=== PATIENT | male | born 1965 | race Caucasian/White ===

== ENCOUNTER 2020-04-21 14:31 | Emergency (ER) | payer SELFPAY ==
[2020-04-21 14:32] VITALS: BP 116/80; PULSE 83; RESP 16; TEMP 36.7; O2SAT 96; BMI 25.0
--- NOTE | 2020-04-21 14:51 | W.ED.ABDPA2 ---
HPI - Abdominal Pain General: Chief Complaint: Abdominal Pain Stated Complaint: NUMBNESS TO FACE AND R ARM, ABD PAIN Time Seen by Provider: 04/21/20 14:33 Source: patient and EMS Mode of arrival: EMS Limitations: no limitations History of Present Illness: HPI narrative: 54-year-old male who is here by EMS from [facility]. He states been having facial numbness along with abdominal pain for days. Difficult to get history from patient as he is very verbally abusive. He has cursed me out and the staff out. Patient is refusing IV and refusing any imaging. Patient states he wants to talk to a community action worker and will not do anything until he speaks to a community action worker. He is able answer my questions appropriately. He is ANO x3. Associated Symptoms: Denies chills, dysuria and fever(s) Review of Systems Const: Denies: fever(s), chills, body aches or change in appetite Eyes: Denies: blurry vision or eye discomfort ENMT: Denies: throat pain or dental pain Card: Denies: chest pain Resp: Denies: dyspnea GI: Reports: abdominal pain : Denies: dysuria Musc: Denies: neck pain or back pain Skin/Breast: Denies: rash Neuro: Denies: headache(s) Psych: Denies: depression Yanick/Lymph: Denies: easy bruising All/Imm: Denies: urticaria Physical Exam Const: COMMON NORMALS: no acute distress, patient oriented x3 and healthy appearing OTHER: very agitated and rude to staff and cussed me and nurses out HENMT: COMMON NORMALS: normocephalic and atraumatic HEAD & SCALP: normocephalic and atraumatic Eye: COMMON NORMALS: Equal, round and reactive pupils present and EOMs intact bilaterally PUPIL: Yes Equal, round and reactive pupils present Neck/C-Spine: COMMON NORMALS: full ROM and supple Chest: COMMONS NORMALS: normal inspection of the chest and normal palpation of entire chest wall Resp: COMMON NORMALS: normal respiratory effort, No retractions, No use of accessory muscles and clear to auscultation bilaterally AUSCULTATION: clear to auscultation bilaterally Cardio: COMMON NORMALS: regular rate, regular rhythm and No murmurs present (Cardio) RATE: regular rate RHYTHM: regular rhythm GI: COMMON NORMALS: Normal to inspection, nondistended, normoactive bowel sounds present, Soft to palpation and no masses PALPATION: Yes Soft to palpation OTHER: diffuse tenderness Extremity: COMMON NORMALS: normal to inspection and full ROM Neuro: COMMON NORMALS: patient oriented x3, moves all extremities and no focal motor deficits Psych: COMMON NORMALS: mental status grossly normal MOOD & AFFECT: Yes irritable Skin: COMMON NORMALS: no rashes or lesions noted and no wounds GENERAL SKIN EXAM: no rashes or lesions noted Course Vital Signs: Vital signs: Vital Signs Temperature 98.0 F 04/21/20 14:32 Pulse Rate 83 04/21/20 14:32 Respiratory Rate 16 04/21/20 14:32 Blood Pressure 116/80 04/21/20 14:32 Pulse Oximetry 96 04/21/20 14:32 MDM - Abdominal Pain MDM Narrative: Medical decision making narrative: Nimesh presents here with abdominal pain. Patient has been agitated and verbally abusive. When patient originally got here he refused IV and CT. He then changed his mind and said he would but then only tried to he started yelling at staff again and refused. Patient does have decision-making past he was able answer my questions appropriately. He knows the date and the president where he is from. Patient understands the risks and he is signing out AMA and is going back to [facility]. He is to return if he changes his mind. He understands agrees to plan. Discharge Plan Discharge Patient Disposition: Left Against Medical Advice Coding Level of Care Code ED Rotary Drier Feeder for Keerthi Carcamo Exam Comprehensive
--- NOTE | 2020-04-21 14:52 | PC.NURSE ---
pt continues to scream at staff and the outer diameter grinder tool. Dr. Leroy went into the room and the pt states that he wants to leave. he is refusing to let us start a IV.
--- NOTE | 2020-04-21 15:50 | PC.NURSE ---
Pt refuses care from this nurse or other staff. Patient states I don't want anybody to touch me, just take me back to retirement. Pt frequently has been yelling curse words and yelling Someone help me but when asked what he needs he states he hurts but continues to tell staff I don't want you to touch me, I want to leave Pt is offered an AMA form to sign and refuses stating I'm not signing anything without my director of music therapy, just take me back to retirement
--- NOTE | 2020-04-21 16:40 | PC.NURSE ---
Pt states he needs to go to the bathroom, pt is offered a urinal or he can walk to the restroom, pt refuses either stating I can't go, I've tried in retirement and couldn't go After discussing options with patient again he chooses to walk to the restroom but when returning to room he states he was unable to go and his pain remains.
--- NOTE | 2020-04-21 17:10 | PC.NURSE ---
When further law enforcement staff arrive for patient transport back to their facility pt tells this nurse that he now does want treatment. Pt agrees to have blood drawn but during first attempt he jerks away and yells You have to get this out of me gesturing toward his lower abdomen/groin. Pt of offered again to use the restroom and states I can't go, you've got to get this out of me Pt instructed that I must get the blood draw at this time and he will need to hold still, pt agrees. Second attempt for blood draw is successful.
[2020-04-21 17:11] LABS: Basophils # 0.1 10^3/uL (0.0-0.1); Basophils % 0.5 %; Eosinophils # 0.1 10^3/uL (0.0-0.8); Eosinophils % 0.9 %; Hematocrit 47.8 % (42.0-52.0); Hemoglobin 15.7 g/dL (11.7-16.6); Lymphocytes # 1.8 10^3/uL (0.8-4.8); Lymphocytes % 18.7 %; Mean Corpuscular HGB Conc 32.8 g/dL (30.0-36.0); Mean Corpuscular Hemoglobin 27.9 pg (28.0-34.0); Mean Corpuscular Volume 85.1 fL (80-94); Mean Platelet Volume 9.6 fL (7.4-10.4); Monocytes # 0.8 10^3/uL (0.2-0.9); Monocytes % 8.1 %; Neutrophils # 7.02 10^3/uL (1.8-7.7); Neutrophils % 71.6 %; Nucleated Red Blood Cells % 0 %; Platelet Count 294 10^3/cmm (130-400); Red Blood Count 5.62 10^6/uL (4.1-5.3); White Blood Count 9.8 10^3/uL (4.0-10.0)
--- NOTE | 2020-04-21 17:23 | CTR_ITS ---
PROCEDURE INFORMATION: Exam: CT Abdomen And Pelvis Without Contrast Exam date and time: 04/21/2020 5:33 PM Age: 54 years old Clinical indication: Other: Unable to urinate; Abdominal pain; Prior surgery; Surgery type: Appy. Left hip; Additional info: Abd pain TECHNIQUE: Imaging protocol: Computed tomography of the abdomen and pelvis without contrast. Radiation optimization: All CT scans at this facility use at least one of these dose optimization techniques: automated exposure control; mA and/or kV adjustment per patient size (includes targeted exams where dose is matched to clinical indication); or iterative reconstruction. COMPARISON: No relevant prior studies available. RADIATION DOSE METRICS: Total DLP (mGy-cm): 1116.77 FINDINGS: Lungs: Limited assessment of the lung bases fails to reveal evidence for active cardiopulmonary process. Liver: Unremarkable. No mass. Gallbladder and bile ducts: Normal. No calcified stones. No ductal dilation. Pancreas: Normal. No ductal dilation. Spleen: Normal. No splenomegaly. Adrenal glands: Normal. No mass. Kidneys and ureters: No visible hydronephrosis, hydroureter, ureterolithiasis, nephrolithiasis, or nephrocalcinosis. Stomach and bowel: Assessment of the hollow viscus fails to reveal evidence of active or acute pathology. Nonobstructed bowel pattern. No visible acute diverticulitis. No visible adynamic or reactive ileus. Appendix: Status post appendectomy. Intraperitoneal space: No visible evidence of mesenteric lymphadenitis or active mesenteritis/panniculitis. No visible pneumoperitoneum. No visible intraperitoneal ascites. Vasculature: The abdominal aorta is nonaneurysmal. Mild arterial sclerotic disease. Lymph nodes: No current visible evidence of active mesenteric or retroperitoneal lymphadenopathy. Urinary bladder: Distended urinary bladder. No visible bladder stone. Bladder measures 16.9 cm x 10.9 cm x 10.9 cm. No bladder wall thickening. No asymmetrical bladder wall thickening. No visible mass. Reproductive: Mild prostate hypertrophy. Prostate measures approximately 5.5 cm x 3.6 cm. Bones/joints: Compression screw and intramedullary jayy fixation left hip with metal artifact. No visible active or acute osseous abnormality. Soft tissues: Unremarkable. Other findings: Suboptimal patient positioning. Increased quantum mottle artifact. CT/CT abdomen pelvis wo con [id number] IMPRESSION: 1. Distended urinary bladder. 2. Mild prostate hypertrophy. 3. No visible hydronephrosis, hydroureter, ureterolithiasis, nephrolithiasis, or nephrocalcinosis. 4. No visible bladder stone. Radiation Dose CTDIVOL = (mGy): DLP = 1116.77 (mGy-cm)
--- NOTE | 2020-04-21 17:23 | CTR_ITS ---
PROCEDURE INFORMATION: Exam: CT Head Without Contrast Exam date and time: 04/21/2020 5:33 PM Age: 54 years old Clinical indication: Pain; Headache; Patient HX: Best images. PT uncooperative; Additional info: Parasthesias TECHNIQUE: Imaging protocol: Computed tomography of the head without contrast. Radiation optimization: All CT scans at this facility use at least one of these dose optimization techniques: automated exposure control; mA and/or kV adjustment per patient size (includes targeted exams where dose is matched to clinical indication); or iterative reconstruction. COMPARISON: No relevant prior studies available. RADIATION DOSE METRICS: Total DLP (mGy-cm): 641 FINDINGS: Brain: No evidence of active or acute intracranial pathologic process, hemorrhage, or trauma. No visible evidence of diffuse cerebral edema or generalized demyelination. Unremarkable white matter. No mass effect. Cerebral ventricles: No ventriculomegaly. Bones/joints: Unremarkable. No acute fracture. Paranasal sinuses: Visualized sinuses are unremarkable. No fluid levels. Mastoid air cells: Visualized mastoid air cells are well aerated. Soft tissues: Unremarkable. Other findings: Motion artifact. CT/CT head wo con* [id number] IMPRESSION: No acute intracranial abnormality. Radiation Dose CTDIVOL = (mGy): DLP = 641 (mGy-cm)
[2020-04-21 17:46] LABS: Alanine Aminotransferase 16 U/L (0-41); Albumin Level 3.9 g/dL (3.5-5.2); Alkaline Phosphatase 90 IU/L (40-130); Anion Gap 14.9 (5-19); Aspartate Amino Transferase 14 U/L (0-40); Blood Urea Nitrogen 16 mg/dL (6-20); Calcium 9.5 mg/dL (8.5-10.5); Carbon Dioxide 23 mmol/L (22-29); Chloride 103 mmol/L (98-107); Glomerular Filtration Rate 69.2 mL/min (90-130); Glucose 108 mg/dL (65-115); Lipase 21 U/L (13-60); Osmolality Calculated 286 mOsm/kg (285-295); Potassium 3.9 mmol/L (3.5-5.1); Sodium 137 mmol/L (136-145); Total Bilirubin 0.6 mg/dL (0.15-1.2); Total Protein 6.9 g/dL (6.6-8.7)
--- NOTE | 2020-04-21 19:04 | PC.NURSE ---
Pt discharged into the custody of law enforcement at this time, pt refused urinary catheter and states I will just deal with the pain
[2020-04-21 19:21] VITALS: BP 103/85; PULSE 88; RESP 18; O2SAT 97
--- NOTE | 2020-04-22 09:46 | DCPLANNER ---
child nutrition manager had message to schedule a follow up appointment for patient with Dr. Stovall. child nutrition manager called the office of Dr. Stovall, spoke with Any, gave clinic patients information. child nutrition manager was told that patients information would be printed and reviewed. Clinic will call patient with appointment information.
--- NOTE | 2020-04-23 13:47 | DCPLANNER ---
Rocio from Dr. Carrion office called case manger stating that when the phone number in chart was called, it was not patients phone number. [facility] manager rn case called the longterm and asked if the longterm would bring patient to the appointment. manager sales training was told that the officer would have to speak with the linux vmware administrator to see if they would take him to the appointment. manager sales training called the office of Dr. Stovall, spoke with Any and told her that patient was in longterm and that the [facility] longterm would call the clinic and tell clinic if they will transport patient to appointment.
--- NOTE | 2020-06-16 08:10 | DCPLANNER ---
Patient had a follow up appointment scheduled for 05.01.[address] Stovall - patient did not attend appointment.
== END 2020-04-21 19:03 | disposition home or self-care (01) ==
PROVIDERS: Emergency Provider Emergency Medicine
DX: R10.9 Unspecified abdominal pain (principal); R20.0 Anesthesia of skin; Z53.21 Procedure and treatment not carried out due to patient leaving prior to being seen by health care provider
CPT/HCPCS: 12345; 70450; 74176; 80053; 83690; 85025; 99281; 99283

== ENCOUNTER 2021-06-10 14:29 | Emergency (ER) | payer SELFPAY ==
[2021-06-10 14:57] VITALS: BP 107/76; PULSE 79; RESP 16; TEMP 36.6; O2SAT 97
--- NOTE | 2021-06-10 15:33 | ED_ITS ---
HPI - Back Pain/Injury General: Chief Complaint: Back Pain/Injury Stated Complaint: BACK PAINS Time Seen by Provider: 06/10/21 15:14 History of Present Illness: 55-year-old male presents emergency room complaining of low back pain radiating to bilateral into the upper portions of his legs. He has not had any loss of bowel control has not had any urinary retention. Generalized ache and pain in his back radiating to his legs he also reports other vague aches including his arms and his face he is not had any sinus congestion he has a baseline chronic smoker's cough that is unchanged he is not had any fever. No dysuria urgency or frequency. MD elicited complaint: back pain Pertinent past history: prior back pain Onset (ago): day(s) Timing: constant Severity: moderate Similar Symptoms Previously: Yes Quality: sharp Location: lumbar spine Radiation: left upper leg and right upper leg Exacerbating factors: movement and walking Relieving factors: supine Associated symptoms: Deny abdominal pain, arthralgias, chills, change in bowel habits, difficulty walking, dysuria, fatigue, fecal incontinence, fever(s), hematuria, myalgias, nausea, numbness, syncope, tingling/numbness/burning, urinary frequency, urinary urgency, vomiting, weakness or other Work related injury: No Review of Systems Const: Denies: fever(s), chills or fatigue ENMT: Denies: throat pain, ear or mastoid pain, nasal discharge or nasal congestion Card: Denies: syncope Resp: Denies: dyspnea, productive cough or non-productive cough GI: Denies: abdominal pain, nausea, vomiting, fecal incontinence or change in bowel habits : Denies: dysuria, urinary urgency or hematuria Skin/Breast: Denies: rash or pruritus Neuro: Denies: difficulty walking PFS ED PFSH: Medical History (Updated 06/10/21 @ 15:37 by Yoav Fields DO) Chronic lumbar pain Surgical History (Updated 06/10/21 @ 15:38 by Yoav Fields DO) Previous back surgery S/P total left hip arthroplasty Social History (Updated 06/10/21 @ 15:38 by Yoav Fields DO) Smoking and tobacco status: current every day smoker Physical Exam Const: COMMON NORMALS: no acute distress GENERAL APPEARANCE: cooperative and comfortable ORIENTATION/CONSCIOUSNESS: Yes awake, Yes oriented to person, Yes oriented to place and Yes oriented to time HENMT: COMMON NORMALS: normocephalic, atraumatic and hearing grossly normal bilaterally HEAD & SCALP: normocephalic and atraumatic Neck/C-Spine: COMMON NORMALS: no JVD Resp: COMMON NORMALS: normal respiratory effort, No retractions, No use of accessory muscles and clear to auscultation bilaterally AUSCULTATION: clear to auscultation bilaterally Cardio: COMMON NORMALS: no JVD, regular rate, regular rhythm and No murmurs present (Cardio) RATE: regular rate RHYTHM: regular rhythm GI: COMMON NORMALS: Soft to palpation and No hepatosplenomegaly present AUSCULTATION: Yes normoactive bowel sounds PALPATION: Yes Soft to palpation, No Tenderness to palpation present (GI), No Guarding due to palpation present (GI) and Yes No hepatosplenomegaly present Extremity: COMMON NORMALS: normal to inspection, capillary refill normal, no clubbing, cyanosis or edema, no calf tenderness and no pedal edema OTHER: Deep tendon reflexes +2/4 patellar tendon dorsum plantar flexion 5 of 5 strength in lower extremities normal neurovascularly overall is intact is normal sensation abnormality. Neuro: SENSORIUM/ORIENTATION: Yes oriented to person, Yes oriented to place and Yes oriented to time Skin: COMMON NORMALS: no rashes or lesions noted GENERAL SKIN EXAM: no rashes or lesions noted Course Vital Signs: Vital signs: Vital Signs Temperature 97.9 F 06/10/21 14:57 Pulse Rate 79 06/10/21 14:57 Respiratory Rate 16 06/10/21 14:57 Blood Pressure 107/76 06/10/21 14:57 Pulse Oximetry 97 06/10/21 14:57 MDM - Back Pain/Injury Medical Decision Making Exacerbation of chronic back pain. Patient has no evidence of cauda equina syndrome medications given in the emergency room discharged home with tizanidine diclofenac prednisone taper Medical Records I reviewed the patient's medical records. Discharge Plan Discharge Patient Disposition: Home Clinical Impression: Strain of lumbar region Condition: Stable Prescriptions: New prednisone 20 mg tablet 20 mg PO BID 7 Days Qty: 15 0RF Rx Instructions: 1 p.o. 3 times daily x3 days, 1 p.o. twice daily x2 days, 1 p.o. daily x2 days tizanidine 4 mg capsule 4 mg PO Q8H PRN (Reason: muscle spasticity) Qty: 20 0RF diclofenac sodium 75 mg tablet,delayed release (DR/EC) 75 mg PO Q12H PRN (Reason: pain) Qty: 20 0RF Discharge Orders: Discharge ED (Routine); Ordered 06/10/21 Ordered By: Yoav Fields Discharge Diet: Usual diet Coding Level of Care Code ED Business Education Teacher for Keerthi Carcamo
[2021-06-10] MEDS: orphenadrine 30 mg/mL Inj 2 mL 60 MG IM (15:42)
[2021-06-10] MEDS: dexamethasone 10 mg/mL INJ IM (15:42)
[2021-06-10] MEDS: ketorolac 60 mg/2 mL INJ IM (15:42)
[2021-06-10 16:02] VITALS: BP 125/77; PULSE 71; RESP 17; O2SAT 98
== END 2021-06-10 16:06 | disposition home or self-care (01) ==
PROVIDERS: Emergency Provider Family Medicine; PCP Urology
DX: S39.012A Strain of muscle, fascia and tendon of lower back, initial encounter (principal); X58.XXXA Exposure to other specified factors, initial encounter; F17.210 Nicotine dependence, cigarettes, uncomplicated
CPT/HCPCS: 96372; 99283; J1100; J1885; J2360